=== PATIENT | male | born 1985 | race American Indian/Alaskan Native ===

== ENCOUNTER 2017-01-26 12:12 | Emergency (ER) | payer SELFPAY ==
[2017-01-26 12:31] VITALS: BP 130/88
[2017-01-26] MEDS ORDERED: BOOSTRIX IM ONE (14:50)
--- NOTE | 2017-01-26 14:51 | Emergency Department Report ---
- General Chief complaint: Skin Rash Stated complaint: ALLERGIC REACTION Time Seen by Provider: 01/26/17 14:47 Source: patient Mode of arrival: Ambulatory Limitations: No Limitations - History of Present Illness Initial comments: Patient reports a painful rash on the left forehead, headache and swollen lymph node that started three days ago complaint: rash Onset/Timin -: days(s) Tetanus Up to Date: no Location: face (left forehead) Severity: severe Severity scale (0 -10): 9 Quality: aching Consistency: constant Improves with: topical medication (hydrocortisone cream) Worsens with: none Context: other (unknown) Associated symptoms: denies other symptoms Treatments Prior to Arrival: OTC topical medication, Benadryl - Related Data Previous Rx's Medication Instructions Recorded Last Taken Type Acetaminophen/Codeine [Tylenol 1 tab PO Q6H PRN #10 tab 01/26/17 Unknown Rx /Codeine # 3 tab] Acyclovir 800 mg PO 5XD #35 tablet 01/26/17 Unknown Rx Doxycycline [Vibramycin CAP] 100 mg PO Q12HR #20 capsule 01/26/17 Unknown Rx Trifluridine [Viroptic 1%] 2 drop OD Q2HWA #1 bottle 01/26/17 Unknown Rx Allergies Allergy/AdvReac Type Severity Reaction Status Date / Time No Known Allergies Allergy Unverified 08/19/15 08:59 Abscess Boil HPI - HPI Chief Complaint: Skin Rash Stated Complaint: ALLERGIC REACTION Home Medications: Previous Rx's Medication Instructions Recorded Last Taken Type Acetaminophen/Codeine [Tylenol 1 tab PO Q6H PRN #10 tab 01/26/17 Unknown Rx /Codeine # 3 tab] Acyclovir 800 mg PO 5XD #35 tablet 01/26/17 Unknown Rx Doxycycline [Vibramycin CAP] 100 mg PO Q12HR #20 capsule 01/26/17 Unknown Rx Trifluridine [Viroptic 1%] 2 drop OD Q2HWA #1 bottle 01/26/17 Unknown Rx Allergies/Adverse Reactions: Allergies Allergy/AdvReac Type Severity Reaction Status Date / Time No Known Allergies Allergy Unverified 08/19/15 08:59 ED Review of Systems ROS: Stated complaint: ALLERGIC REACTION Other details as noted in HPI Constitutional: denies: chills, malaise, weakness Eyes: denies: eye pain, eye discharge, vision change ENT: other. denies: ear pain, throat pain, dental pain, hearing loss, epistaxis , congestion Respiratory: denies: cough, orthopnea, shortness of breath, SOB with exertion, SOB at rest, stridor, wheezing Cardiovascular: denies: chest pain, palpitations, dyspnea on exertion, orthopnea , edema, syncope, paroxysmal nocturnal dyspnea Gastrointestinal: denies: abdominal pain, nausea, vomiting, diarrhea, constipation Musculoskeletal: denies: back pain, joint swelling, arthralgia Skin: rash (left forehead). denies: lesions, change in color, change in hair/ nails, pruritus Neurological: denies: headache, weakness Psychiatric: denies: anxiety, depression Hematological/Lymphatic: swollen glands (left cervical lymph node). denies: easy bleeding, easy bruising ED Past Medical Hx - Past Medical History Previous Medical History?: No Hx Psychiatric Treatment: Yes (ADHD) - Surgical History Past Surgical History?: No - Social History Smoking Status: Current Every Day Smoker Substance Use Type: Marijuana - Medications Home Medications: Home Medications Medication Instructions Recorded Confirmed Last Taken Type Acetaminophen/Codeine [Tylenol 1 tab PO Q6H PRN #10 tab 01/26/17 Unknown Rx /Codeine # 3 tab] Acyclovir 800 mg PO 5XD #35 tablet 01/26/17 Unknown Rx Doxycycline [Vibramycin CAP] 100 mg PO Q12HR #20 capsule 01/26/17 Unknown Rx Trifluridine [Viroptic 1%] 2 drop OD Q2HWA #1 bottle 01/26/17 Unknown Rx ED Physical Exam - General Limitations: No Limitations General appearance: alert, in no apparent distress - Head Head exam: Present: atraumatic, normocephalic, normal inspection - Eye Eye exam: Present: normal appearance, PERRL, EOMI. Absent: scleral icterus, conjunctival injection, nystagmus, periorbital swelling, periorbital tenderness Pupils: Present: normal accommodation - Expanded Eye Exam Expanded Eyelids: Normal Inspection: Right, Erythema: Left (left upper eyelid), Swelling : Left (left upper eyelid) Pupils: Regular, Round: Bilateral, Reactive: Bilateral Sclera/Conjunctival: Normal Inspection: Bilateral Anterior chamber: Normal Inspection: Bilateral Posterior chamber: Deferred: Bilateral Visual acuity (R) = 20/: 50 Visual acuity (L) = 20/: 70 With correction: Yes (glasses) - ENT ENT exam: Present: normal exam, normal orophraynx, mucous membranes moist. Absent: mucous membranes dry - Neck Neck exam: Present: normal inspection, full ROM, lymphadenopathy (left cervical with palpation). Absent: tenderness, meningismus - Respiratory Respiratory exam: Present: normal lung sounds bilaterally. Absent: respiratory distress, wheezes, rales, rhonchi, stridor, chest wall tenderness, accessory muscle use, decreased breath sounds, prolonged expiratory - Cardiovascular Cardiovascular Exam: Present: regular rate, normal rhythm, normal heart sounds. Absent: systolic murmur, diastolic murmur, rubs, gallop - Extremities Exam Extremities exam: Present: normal inspection, full ROM, normal capillary refill - Back Exam Back exam: Present: normal inspection, full ROM. Absent: tenderness, CVA tenderness (R), CVA tenderness (L), muscle spasm, paraspinal tenderness, vertebral tenderness - Neurological Exam Neurological exam: Present: alert, oriented X3, CN II-XII intact, normal gait, reflexes normal. Absent: motor sensory deficit - Psychiatric Psychiatric exam: Present: normal affect, normal mood - Skin Skin exam: Present: warm, dry, normal color, vesicles (tenderness to palpation dermatomal clustered vesicles on an erythematouos base to crusting ulcers on the left forehead) ED Course Vital Signs 01/26/17 12:26 Temperature 97.9 F Pulse Rate 74 Respiratory 18 Rate Blood Pressure 130/88 O2 Sat by Pulse 100 Oximetry - Reevaluation(s) Reevaluation #1: 01/26/17 14:55 Tetanus vaccine ordered ED Medical Decision Making - Lab Data Vital Signs 01/26/17 12:26 Temperature 97.9 F Pulse Rate 74 Respiratory 18 Rate Blood Pressure 130/88 O2 Sat by Pulse 100 Oximetry - Medical Decision Making During the course of ED, tetanus vaccine was ordered. All other systems were unremarkable except for documentation in HPI. Patient was sent home with prescriptions for Acyclovir, Doxycycline, Viroptic eye gtts and Tylenol with codeine, instructed to follow up with the selective referral given at discharge , he verbalized understanding - Differential Diagnosis Shingles, Allergic Dermatitis, Blepharitis Critical care attestation.: If time is entered above; I have spent that time in minutes in the direct care of this critically ill patient, excluding procedure time. ED Disposition Clinical Impression: Shingles rash Qualifiers: Herpes zoster complications: unspecified herpes zoster complication Qualified Code(s): B02.8 - Zoster with other complications Blepharitis of left eye Qualifiers: Blepharitis type: unspecified type Eyelid: upper Qualified Code(s): H01.004 - Unspecified blepharitis left upper eyelid Disposition: - TO HOME OR SELFCARE Is pt being admited?: No Does the pt Need Aspirin: No Condition: Stable Instructions: Herpes Zoster (ED), Blepharitis (ED) Additional Instructions: Take medication as directed. Follow up with the selective referral in 1-2 days. No drinking or driving while taking medications Prescriptions: Trifluridine [Viroptic 1%] 2 drop OD Q2HWA #1 bottle Acetaminophen/Codeine [Tylenol /Codeine # 3 tab] 1 tab PO Q6H PRN #10 tab PRN Reason: Pain Acyclovir 800 mg PO 5XD #35 tablet Doxycycline [Vibramycin CAP] 100 mg PO Q12HR #20 capsule Referrals: PRIMARY MD YASMINE [Primary Care Provider] - 3-5 Days ASHLEY MUELLER MD [Staff Physician] - 3-5 Days SAMAN ALBA MD [Staff Physician] - 3-5 Days Forms: Work/School Release Form(ED) Time of Disposition: 15:19
== END 2017-01-26 15:48 | disposition home or self-care (01) ==
LOC: ED 12:12
DX: H01.004 Unspecified blepharitis left upper eyelid (principal); B02.8 Zoster with other complications; F17.200 Nicotine dependence, unspecified, uncomplicated; F12.10 Cannabis abuse, uncomplicated; F90.9 Attention-deficit hyperactivity disorder, unspecified type
CPT/HCPCS: 90471; 90715; 99282